=== PATIENT | female | born 1965 | race African-American/Black ===

== ENCOUNTER 2017-07-28 03:00 | Observation (INO) | payer MEDICAID, OTHER ==
[~2017-07-28] VITALS: Ht 160 cm; Wt 71.9 kg
[~2017-07-28 03:00] MED LIST: ACETAMINOPHEN 500 MG CPLT PO PRN; ENALAPRILAT 1.25 MG/ML VIAL IV PUSH PRN; NITROGLYCERIN 0.4 MG SL 25 TABS/BTL SL PRN; SODIUM CHLORIDE 0.9% FLUSH 10 ML FLUSH IV FLUSH PRN; Z.0.NO CURRENT MEDS
[2017-07-28] MEDS ORDERED: ASPI81TA23 PO ×2 (03:14→12:31)
[2017-07-28] MEDS ORDERED: ALPR.25 PO (03:14)
[2017-07-28] MEDS ORDERED: LISI20TA3 PO ×2 (03:14→12:31)
[2017-07-28] MEDS ORDERED: CELE20TA PO ×2 (03:14→12:31)
[2017-07-28] MEDS ORDERED: AMLO5TAB2 PO ×2 (03:14→12:31)
[2017-07-28 04:00] VITALS: BP 122/76; PULSE 60; RESP 16; TEMP 97; O2SAT 97
[2017-07-28] MEDS: HEPARIN SODIUM - SQ 10,000 UNITS/ML VIAL SQ SCH ×2 (04:56→12:07)
[2017-07-28 04:59] VITALS: PULSE 53
[2017-07-28 07:03] LABS: TROPONIN I LESS THAN 0.02 NG/ML (0.02-0.05)
[2017-07-28 08:00] VITALS: BP 101/65; PULSE 56; RESP 16; TEMP 97.7; O2SAT 96
[2017-07-28] MEDS ORDERED: ALPRAZolam 0.25 MG TAB PO PRN (08:30)
[2017-07-28] MEDS ORDERED: SODIUM CHLORIDE 0.9% FLUSH 10 ML FLUSH IV FLUSH SCH (09:00)
[2017-07-28] MEDS ORDERED: CITALOPRAM HYDROBROMIDE 20 MG TAB PO SCH (09:00)
[2017-07-28] MEDS ORDERED: NON-FORMULARY DRUG (Lisinopril-Hctz 1 TAB) PO SCH (09:00)
[2017-07-28] MEDS ORDERED: ASPIRIN 325 MG TAB PO SCH (09:00)
[2017-07-28] MEDS ORDERED: amLODIPine BESYLATE 5 MG TAB PO SCH (09:00)
--- NOTE | 2017-07-28 09:03 | HHI.HP ---
HPI Service [facility] Primary Care Physician No Primary Care Physician Admission Diagnosis Chest pain Diagnoses: (1) Chest pain Diagnosis: Principal Chief Complaint: Chest pain Travel History International Travel<30 Days: No Contact w/Intl Traveler <30 Da: No Traveled to Known Affected Are: No History of Present Illness Written by Magy Pearson, acting as scribe for Dr. Friedman on 07/28/17 at 08: 51. This is a pleasant 48-year-old female patient who presented to the ER with complaints of chest pain. Patient states that this pain started last evening at rest when she noticed her chest is tight and "pulling" in nature, states the pain sometimes radiates to her left arm and right leg. Patient characterizes pain is sharp in nature, usually lasts a few minutes and then goes away on its own. Patient states that she does feel a sensation when her blood pressure is elevated. She did take her blood pressure at home with the highest reading of 191. She does admit to compliance with BP medications. Patient states that the pain is worse with activity. Does not follow with a broker in charge. Patient did undergo a treadmill stress test last year in September at [facility] which was reportedly negative. Patient states that having this pain on and off for the last year and usually is associated with her hypertension. Denies any recent illness including fever, chills, cough, shortness of breath, abdominal pain, nausea, vomiting, diarrhea, dysuria. Review of Systems Constitutional: DENIES: Fever, Chills Respiratory: COMPLAINS OF: Shortness of breath, DENIES: Cough, Sputum production Cardiovascular: COMPLAINS OF: Chest pain Gastrointestinal: DENIES: Abdominal pain, Black stools, Bloody stools, Constipation, Diarrhea, Nausea, Vomiting Musculoskeletal: DENIES: Joint pain Integumentary: DENIES: Abnormal pigmentation Hematologic/lymphatic: DENIES: Bruising Immunologic/allergic: DENIES: Eczema Neurologic: DENIES: Abnormal gait Psychiatric: COMPLAINS OF: Anxiety Except as stated in HPI: all other systems reviewed are Neg Past Family Social History Past Medical History Anemia Hypertension Pancreatitis Past Surgical History 3 Uterine ablation Reported Medications Active Reported Aspirin EC (Aspirin) 81 Mg Tabdr 81 Mg PO DAILY Celexa (Citalopram Hydrobromide) 20 Mg Tab 20 Mg PO DAILY Xanax (Alprazolam) 0.25 Mg Tab 0.25 Mg PO Q8H PRN Amlodipine (Amlodipine Besylate) 5 Mg Tab 5 Mg PO BID Lisinopril-Hctz 20-25 Mg Tab 1 Tab PO BID Allergies: Coded Allergies: No Known Allergies (Verified Allergy, Unknown, 07/28/17) Active Ordered Medications Current Medications Medications (Trade) Dose Ordered Sig/Dorothy Route Start Time Stop Time Status Last Admin (NS Flush) 2 ml BID IV FLUSH 07/28/17 09:00 07/28/17 08:18 (NS Flush) 2 ml UNSCH PRN IV FLUSH 07/28/17 01:15 (Aspirin) 325 mg DAILY PO 07/28/17 09:00 07/28/17 08:17 (Nitrostat Sl) 0.4 mg Q5M PRN SL 07/28/17 01:15 (Tylenol) 500 mg Q4H PRN PO 07/28/17 01:15 (Heparin Inj) 5,000 units Q8H SQ 07/28/17 04:00 07/28/17 04:56 (Vasotec Inj) 1.25 mg Q6H PRN IV PUSH 07/28/17 01:30 (Xanax) 0.25 mg Q8H PRN PO 07/28/17 08:30 UNV (Norvasc) 5 mg BID PO 07/28/17 09:00 UNV (Ecotrin Ec) 81 mg DAILY PO 07/28/17 09:00 UNV (CeleXA) 20 mg DAILY PO 07/28/17 09:00 UNV Non-Formulary Medication 1 tab BID PO 07/28/17 09:00 UNV Family History Paternal medical history significant for cardiovascular disease. Patient states that her uncle had a CABG in his early 60s. Father of lung cancer. Social History Denies any current or previous tobacco use. Denies any alcohol use. Denies any illicit drug use. Physical Exam Vital Signs Vital Signs Date Time Temp Pulse Resp B/P (MAP) Pulse Ox O2 Delivery O2 Flow Rate FiO2 07/28/17 04:59 53 07/28/17 04:00 97.0 60 16 122/76 (52) 97 Physical Exam GENERAL: Well-nourished, well-developed patient in NAD. SKIN: Warm and dry. No rash. HEAD: Normocephalic. Atraumatic. EYES: Pupils equal and round. No scleral icterus. No injection or drainage. ENT: No nasal bleeding or discharge. Mucous membranes pink and moist. NECK: Supple. Trachea midline. No JVD. CARDIOVASCULAR: Regular rate and rhythm. S1, S2 noted. No murmur appreciated. no reproducible chest pain. RESPIRATORY: No accessory muscle use. Clear to auscultation. Breath sounds equal bilaterally. GASTROINTESTINAL: Abdomen soft, non-tender, nondistended. Normoactive bowel sounds x4. MUSCULOSKELETAL: No obvious deformities. Extremities without clubbing, cyanosis , or edema. NEUROLOGICAL: Awake and alert. No obvious cranial nerve deficits. Motor grossly within normal limits. 5/5 muscle strength in bilateral upper and lower extremities. Normal speech. PSYCHIATRIC: Appropriate mood and affect; insight and judgment normal. Laboratory Laboratory Tests Test 07/28/17 05:00 Total Creatine Kinase 218 Creatine Kinase MB 0.7 Creatine Kinase MB % 0.3 Troponin I LESS THAN 0.02 Septic Shock Reassessment Septic shock perfusion: reassessment completed Caprini VTE Risk Assessment Caprini VTE Risk Assessment: No/Low Risk (score <= 1) Caprini Risk Assessment Model Point Value = 1 Point Value = 2 Point Value = 3 Point Value = 5 Age 41-60 Minor surgery BMI > 25 kg/m2 Swollen legs Varicose veins or History of unexplained or recurrent spontaneous Oral contraceptives or hormone replacement Sepsis (< 1 month) Serious lung disease, including pneumonia (< 1 month) Abnormal pulmonary function Acute myocardial infarction Congestive heart failure (< 1 month) History of inflammatory bowel disease Medical patient at bed rest Age 61-74 Arthroscopic surgery Major open surgery (> 45 min) Laparoscopic surgery (> 45 min) Malignancy Confined to bed (> 72 hours) Immobilizing plaster cast Central venous access Age >= 75 History of VTE Family history of VTE Factor V Leiden Prothrombin [id number] Lupus anticoagulant Anticardiolipin antibodies Elevated serum homocysteine Heparin-induced thrombocytopenia Other congenital or acquired thrombophilia Stroke (< 1 month) Elective arthroplasty Hip, pelvis, or leg fracture Acute spinal cord injury (< 1 month) Prophylaxis Regimen Total Risk Factor Score Risk Level Prophylaxis Regimen 0-1 Low Early ambulation 2 Moderate Order ONE of the following: *Sequential Compression Device (SCD) *Heparin 5000 units SQ BID 3-4 Higher Order ONE of the following medications: *Heparin 5000 units SQ TID *Enoxaparin/Lovenox 40 mg SQ daily (WT < 150 kg, CrCl > 30 mL/min) *Enoxaparin/Lovenox 30 mg SQ daily (WT < 150 kg, CrCl > 10-29 mL/min) *Enoxaparin/Lovenox 30 mg SQ BID (WT < 150 kg, CrCl > 30 mL/min) AND/OR *Sequential Compression Device (SCD) 5 or more Highest Order ONE of the following medications: *Heparin 5000 units SQ TID (Preferred with Epidurals) *Enoxaparin/Lovenox 40 mg SQ daily (WT < 150 kg, CrCl > 30 mL/min) *Enoxaparin/Lovenox 30 mg SQ daily (WT < 150 kg, CrCl > 10-29 mL/min) *Enoxaparin/Lovenox 30 mg SQ BID (WT < 150 kg, CrCl > 30 mL/min) AND *Sequential Compression Device (SCD) Assessment and Plan Problem List: (1) Chest pain ICD Code: R07.9 - Chest pain, unspecified Plan: Patient has been admitted to the chest pain center. Serial EKGs and serial troponins have been ordered for ruling out ACS purposes. Serial troponins flat. EKG reviewed showing SB, heart rate controlled, no ST changes to indicate ischemia. CBC and BMP reviewed essentially unremarkable. Chest x-ray negative for any cardiopulmonary disease. Patient was given aspirin and ED. continue daily aspirin. Echocardiogram ordered. Pending, follow. Lipid panel ordered, follow. Patient will undergo a Lexiscan cardiac stress test to rule out any further ischemia. Further hospitalization and treatment plan will depend on stress test results. Continue to follow. Supportive care. Patient is stable and agreeable to the plan. (2) Hypertension ICD Code: I10 - Essential (primary) hypertension Plan: Continue home BP meds, amlodipine, hydrochlorothiazide. Vasotec available when necessary as needed. DVT prophylaxis: SCDs. Heparin. Assessment and Plan This note was transcribed by rao Pearson. I, Dr. Billy Friedmanmus personally performed the history, physical exam, and medical decision making; and confirmed the accuracy of the information in the transcribed note. Authenticated by Dr. Billy Herman on 07/28/17 at 09:15. Patient underwent a cardiac nuclear stress test which was unremarkable. ECHO was done and reviewed which results were relayed with patient. Cholesterol elevated, added statin. Encouraged to follow up with PCP. Patient is stable at this time and agreeable to the plan. Magy Pearson Jul 28, 2017 09:03 Blily Stuart MD Jul 28, 2017 09:15
[2017-07-28] MEDS ORDERED: HYDROCHLOROTHIAZIDE 25 MG TAB PO SCH (09:26)
[2017-07-28] MEDS ORDERED: LISINOPRIL 20 MG TAB PO SCH (09:26)
[2017-07-28] MEDS ORDERED: REGADENOSON INJ 0.4 MG/5 ML SYR IV ONE (11:03)
--- NOTE | 2017-07-28 11:44 | TR ---
Date Performed: 07/28/2017 Time Performed: 11:13:56 DOCTOR: Ulysses Barahona DRUG LIST: CLINICAL HISTORY: CHEST PAIN REASON FOR TEST: Chest pain REASON FOR ENDING: OBSERVATION: CONCLUSION: Lexiscan stress test was performed under standard four minute protocol. Radionuclide was injected one minute prior to ending the test. No electrocardiographic abormalities were present to suggest ischemia. Nuclear imaging and interpretation are pending. COMMENTS:
[2017-07-28 12:00] VITALS: BP 106/68; PULSE 57; RESP 16; TEMP 98; O2SAT 97
--- NOTE | 2017-07-28 12:01 | RADRPT ---
EXAM DATE/TIME: 07/28/2017 10:51 [place] COMPARISON: No previous studies available for comparison. INDICATIONS : Substernal chest pain. Angina. DOSE: 25.4 mCi Tc99m Myoview at stress. 8.5 mCi Tc99m Myoview at rest. 0.4 mg Lexiscan STRESS SYMPTOMS: Weird feeling. EJECTION FRACTION: 62% MEDICAL HISTORY : Hypertension. SURGICAL HISTORY : Tubal ligation. section. ENCOUNTER: Initial ACUITY: 1 day PAIN SCALE: 5/10 LOCATION: Substernal chest TECHNIQUE: The patient underwent pharmacologic stress with infusion of prescribed dose. Continuous ECG tracing was monitored during stress. Gated SPECT imaging was performed after stress and conventional SPECT i maging was performed at rest. The examination was performed on a SPECT/CT scanner, both attenuation and non-corrected datasets were reviewed. FINDINGS: DISTRIBUTION: The maximum perfused segment at stress is in the inferior wall. PERFUSION STUDY: The pattern of perfusion at stress is within normal limits. GATED STUDY: There is intact wall motion and thickening without hypokinetic or dyskinetic segments. CONCLUSION: Unremarkable myocardial perfusion examination. RISK CATEGORY: Low Moses Tran MD on July 28, 2017 at 11:57 Board Certified Radiologist. This report was verified electronically.
--- NOTE | 2017-07-28 12:11 | HHI.DCPOC ---
Discharge Care Plan Diagnosis: (1) Chest pain (2) Hypertension Goals to Promote Your Health * To prevent worsening of your condition and complications * To maintain your health at the optimal level Directions to Meet Your Goals Take your medications as prescribed Follow your dietary instruction Follow activity as directed Keep your appointments as scheduled Take your immunizations and boosters as scheduled If your symptoms worsen call your PCP, if no PCP go to Urgent Care Center or Emergency Room Smoking is Dangerous to Your Health. Avoid second hand smoke Call the 24-hour hour crisis hotline for domestic abuse at Magy Pearson Jul 28, 2017 12:10
[2017-07-28 12:58] LABS: TROPONIN I LESS THAN 0.02 NG/ML (0.02-0.05)
--- NOTE | 2017-07-28 15:24 | ECHRPT ---
Indication: HYPERTENSIVE HEART DISEASE CONCLUSIONS The left ventricular systolic function is normal with an estimated ejection fraction in the range of 60-65%. Normal left ventricular size. Wall thickness is measured at the upper limits of normal. [id number] mitral valve regurgitation. Aortic valve sclerosis is present. There is trace tricuspid valve regurgitation. BP: 101 / 56 HR: Rhythm: Sinus MEASUREMENTS (Male / Female) Normal Values Technical Quality:Fair 2D ECHO LV Diastolic Diameter PLAX 4.5 cm 4.2 - 5.9 / 3.9 - 5.3 cm LV Systolic Diameter PLAX 3.2 cm IVS Diastolic Thickness 1.0 cm 0.6 - 1.0 / 0.6 - 0.9 cm LVPW Diastolic Thickness 1.0 cm 0.6 - 1.0 / 0.6 - 0.9 cm LV Relative Wall Thickness 0.4 RV Internal Dim ED PLAX 2.1 cm LVOT Diameter 2.0 cm Aortic Root Diameter 3.0 cm LA Systolic Diameter LX 2.3 cm 3.0 - 4.0 / 2.7 - 3.8 cm M-MODE AV Cusp Separation MM 1.7 cm DOPPLER AV Peak Velocity 127.0 cm/s AV Peak Gradient 6.5 mmHg AV Mean Gradient 3.0 mmHg AV Velocity Time Integral 24.9 cm LVOT Peak Velocity 75.2 cm/s LVOT Peak Gradient 2.3 mmHg LVOT Velocity Time Integral 14.4 cm AV Area Cont Eq vti 1.8 cm AV Area Cont Eq pk 1.9 cm Mitral E Point Velocity 85.4 cm/s Mitral A Point Velocity 83.9 cm/s Mitral E to A Ratio 1.0 LV E' Lateral Velocity 9.7 cm/s Mitral E to LV E' Lateral Ratio 8.8 LV E' Septal Velocity 6.4 cm/s Mitral E to LV E' Septal Ratio 13.3 TR Peak Velocity 255.0 cm/s TR Peak Gradient 26.0 mmHg PV Peak Velocity 52.6 cm/s PV Peak Gradient 1.1 mmHg FINDINGS LEFT VENTRICLE Normal left ventricular size. Wall thickness is measured at the upper limits of normal. Normal LV fx. RIGHT VENTRICLE Normal right ventricular size and systolic function. LEFT ATRIUM The left atrial size is normal. RIGHT ATRIUM The right atrial size is normal. ATRIAL SEPTUM Normal atrial septal thickness without atrial level shunting by limited color doppler interrogation. AORTA The aortic root and proximal ascending aorta are normal in size on limited imaging. MITRAL VALVE [id number] mitral valve regurgitation. AORTIC VALVE Aortic valve sclerosis is present. TRICUSPID VALVE There is trace tricuspid valve regurgitation. PULMONARY VALVE No pulmonary valve regurgitation or stenosis. VESSELS The inferior vena cava is normal in size. PERICARDIUM No pericardial effusion. Jimena Martin MD, FACC (Electronically Signed) Final Date:28 July 2017 15:23
[2017-07-28 16:00] VITALS: BP 110/76; PULSE 78; RESP 16; TEMP 98; O2SAT 97
[2017-07-28 16:13] LABS: CHOLESTEROL 233 MG/DL (120-200); TRIGLYCERIDES 64 MG/DL (42-150)
[2017-07-28 16:16] LABS: CHOLESTEROL/ HDL RATIO 3.24 RATIO; HDL CHOLESTEROL 71.7 MG/DL (40.0-60.0); LDL CHOLESTEROL 149 MG/DL (0-99)
[2017-07-28] MEDS ORDERED: ATOR40TA16 PO (16:24)
[2017-07-29] MEDS ORDERED: ASPIRIN EC 81 MG TABEC PO SCH (09:00)
--- NOTE | 2017-07-30 00:12 | EKG ---
Date Performed: 07/28/2017 Time Performed: 09:58:06 PTAGE: 52 years EKG: SINUS BRADYCARDIA WITH FIRST DEGREE AV BLOCK LOW QRS VOLTAGE IN PRECORDIAL LEADS ABNORMAL E CG PREVIOUS TRACING : 11/13/1996 22.09 Since the prior tracing, there has been no significant kang DOCTOR: Jignesh Baeza Interpretating Date/Time 07/30/2017 00:10:57
== END 2017-07-28 18:33 | disposition home or self-care (01) ==
LOC: PHEDDLT 03:00 → PH3A 03:10
PROVIDERS: ADMIT Hospitalist; ATTEND Hospitalist
DX: R07.9 Chest pain, unspecified (principal); I10 Essential (primary) hypertension; I44.0 Atrioventricular block, first degree; I20.9 Angina pectoris, unspecified; R00.1 Bradycardia, unspecified; R94.31 Abnormal electrocardiogram [ECG] [EKG]; Z79.899 Other long term (current) drug therapy; Z79.82 Long term (current) use of aspirin
CPT/HCPCS: 71045; 78452; 80048; 80061; 82550; 82552; 83735; 84484; 85025; 85610; 85730; 93005; 93017; 93306; 96372; 99285; A9502; G0378; J1644; J2785